=== PATIENT | female | born 1950 | race Caucasian/White ===

== ENCOUNTER 2021-09-18 20:58 | Emergency (ER) | payer SELFPAY | END 2021-09-18 22:30 | disposition left against medical advice (07) | LOC: ER 20:58 | DX: R51.9 Headache, unspecified (principal); J02.9 Acute pharyngitis, unspecified; M79.10 Myalgia, unspecified site; R50.9 Fever, unspecified; Z53.21 Procedure and treatment not carried out due to patient leaving prior to being seen by health care provider ==